=== PATIENT | female | born 1970 | race Caucasian/White ===

== ENCOUNTER 2020-06-06 11:27 | Emergency (ER) | payer OTHER, SELFPAY ==
[~2020-06-06] VITALS: Ht 165.1 cm; Wt 86.2 kg
[2020-06-06 11:29] VITALS: Ht 165.1 cm; Wt 86.2 kg
[2020-06-06 15:03] VITALS: BP 130/83
== END 2020-06-06 14:50 | disposition short-term general hospital (02) ==
LOC: ED 11:27
DX: U07.1 COVID-19 (principal); I21.3 ST elevation (STEMI) myocardial infarction of unspecified site; E11.65 Type 2 diabetes mellitus with hyperglycemia; Z90.49 Acquired absence of other specified parts of digestive tract; Z98.890 Other specified postprocedural states
CPT/HCPCS: 82962; 83880; 85378; 87804; J1644